=== PATIENT | female | born 1990 | race Caucasian/White ===

== ENCOUNTER 2016-07-19 18:59 | Emergency (ER) | payer SELFPAY ==
--- NOTE | 2016-07-19 19:23 | ED Physician Documentation ---
General Adult - HISTORIAN Historian: patient - HPI Stated Complaint: cp Chief Complaint: General Adult Additional Information: Sharp right sided CP and sternal pressure, hard to breathe, for two days. Can't catch her breath because deep breath makes it hurt worse. Thinks she was wtchign TV when it began. - ROS CONST: no problems CVS/RESP: denies: cough LNMP: 06/18/16 ("end of last month) - PAST HX Past History: none Surgeries/Procedures: none Allergies/Adverse Reactions: Allergies Allergy/AdvReac Type Severity Reaction Status Date / Time bismuth subsalicylate Allergy Verified 08/13/15 09:28 [From Pepto-Bismol] Penicillins AdvReac Nausea/Vomi Verified 07/19/16 19:34 ting Home Medications: Ambulatory Orders Medication Instructions Recorded Nitrofurantoin Monohyd/M-Cryst 100 mg PO Q12H #14 capsule 07/19/16 [Macrobid] - SOCIAL HX Smoking History: non-smoker - FAMILY HX Family History: Yes (DM, "thyrodi") - VITAL SIGNS Vital Signs: Vital Signs Temp Pulse Resp BP Pulse Ox 137/94 08/13/15 09:49 - REVIEWED ASSESSMENTS Nursing Assessment Reviewed: Yes Vitals Reviewed: Yes Progress - Progress Progress: Chest 2 views Date of Exam: July 19, 2016. History: CXR, CHEST PAIN AND PRESSURE TODAY WITH RIGHT SIDED PAIN X2 DAYS (Hx) / CHEST PAIN (DICOM Hx) / CHEST PAIN (Pt comments) Findings: No comparison studies are provided. The cardiac and mediastinal silhouettes are normal. The lungs are clear. There is no evidence of pulmonary infiltrate or pleural effusion. The trachea is midline and the aortic arch contour is normal. The pulmonary vascularity is within normal limits. There is slight elevation of the right hemidiaphragm. Impression: No acute cardiopulmonary abnormality. Electronically signed on Jul 19, 2016 8:22:17 PM CDT by: Fabiola Henderson EKG: sinu rhythm, 61 BPM, no ischemic changes ED Results Lab/Radiology - Orders Orders: ED Orders Category Date Time Status Continuous EKG monitoring Q1H Care 07/19/16 19:21 Ordered Continuous Pulse Oximetry Q1H Care 07/19/16 19:21 Ordered CHEST P.A.&LAT 2 VIEWS [RAD] Stat Exams 07/19/16 Ordered CBC/PLATELET/DIFF Routine Lab 07/19/16 Ordered CMP Routine Lab 07/19/16 Ordered TROPONIN I (cTnI) Stat Lab 07/19/16 Ordered URINALYSIS Routine Lab 07/19/16 Ordered URINE HCG Stat Lab 07/19/16 Uncollected EKG WITH COMPARISON Stat Ther 07/19/16 Ordered General Adult Physical Exam - PHYSICAL EXAM GENERAL APPEARANCE: no distress EENT: eye inspection normal, ENT inspection normal, pharynx normal NECK: normal inspection, supple RESPIRATORY: no resp distress, breath sounds normal, other (palpation right mid sternum reproduces her pain) CVS: reg rate & rhythm, heart sounds normal, no murmur ABDOMEN: soft, normal bowel sounds, non-tender BACK: normal inspection SKIN: warm/dry, normal color EXTREMITIES: no evidence of injury, no edema NEURO: CN's nml as tested, motor nml, sensation nml Discharge Clincal Impression: Chest wall pain Urinary tract infection Qualifiers: Urinary tract infection type: acute cystitis Hematuria presence: with hematuria Qualified Code(s): N30.01 - Acute cystitis with hematuria Prescriptions: Nitrofurantoin Monohyd/M-Cryst [Macrobid] 100 mg PO Q12H #14 capsule Additional Instructions: Drink plenty of water. Take all the antibiotics as prescribed until they are completely gone. For the chest wall pain, press on the sore area if you know you are about to cough or sneeze. You can apply gentle heat several times a day. Home Medications: Ambulatory Orders Nitrofurantoin Monohyd/M-Cryst [Macrobid] 100 mg PO Q12H #14 capsule 07/19/16 Condition: Good Disposition: 01 HOME, SELF-CARE Decision to Admit: NO Decision Time: 21:05
[2016-07-19 19:45] LABS: BASOPHILS % 0.2 (0.0-1.5); LYMPHOCYTES # 1.7 # k/uL (0.6-4.0); MEAN CORPUSCULAR HEMOGLOBIN 29.6 pg (28.0-34.0); MONOCYTES # 0.3 # k/uL (0.0-0.9); NEUTROPHILS # 3.1 # k/uL (1.4-7.7)
[2016-07-19] MEDS ORDERED: NITROFURANTOIN 100 MG CAPSULE PO ONE (19:57)
[2016-07-19 20:02] LABS: eGFR (African) > 60; eGFR (Non-African) > 60
[2016-07-19 21:35] VITALS: BP 122/75
[2016-07-20 05:48] LABS: APPEARANCE,URINE CLOUDY (CLEAR); COLOR,URINE YELLOW (YELLOW); OCCULT BLOOD,URINE 1+ (NEGATIVE); UROBILINOGEN URINE 0.2 Eu (0.2-1.0)
--- NOTE | 2016-07-20 10:30 | Diagnostic Imaging Report ---
ELIZABETH HILTON - JUDITH [facility] [id number] Counts Include [address] Beds At [facility] [address] [place] [address]. [id number] Report Submission Date: Jul 19, 2016 8:22:17 PM CDT Patient Study Name: ALLEN BLANK Date: Jul 19, 2016 7:50:23 PM CDT Modality Type: CR Gender: F Description: CHEST : 86 Institution: [facility] Physician: ELIZABETH HILTON - JUDITH Chest 2 views Date of Exam: July 19, 2016. History: CXR, CHEST PAIN AND PRESSURE TODAY WITH RIGHT SIDED PAIN X2 DAYS (Hx) / CHEST PAIN (DICOM Hx) / CHEST PAIN (Pt comments) Findings: No comparison studies are provided. The cardiac and mediastinal silhouettes are normal. The lungs are clear. There is no evidence of pulmonary infiltrate or pleural effusion. The trachea is midline and the aortic arch contour is normal. The pulmonary vascularity is within normal limits. There is slight elevation of the right hemidiaphragm. Impression: No acute cardiopulmonary abnormality. Electronically signed on Jul 19, 2016 8:22:17 PM CDT by: Fabiola SHEPPARD
== END 2016-07-19 21:10 | disposition home or self-care (01) ==
LOC: ED 18:59
DX: R07.89 Other chest pain (principal); N30.01 Acute cystitis with hematuria
CPT/HCPCS: 71020; 80053; 81002; 81025; 84484; 85025; 87086; 87186; 99283

== ENCOUNTER 2017-01-09 12:35 | Emergency (ER) | payer SELFPAY ==
[2017-01-09 13:07] VITALS: BP 133/84
--- NOTE | 2017-01-09 13:53 | ED Physician Documentation ---
General Adult - HISTORIAN Historian: patient - HPI Stated Complaint: left neck pain Chief Complaint: General Adult Further Comments: yes (26 year old female patient presents with complaints of left lateral jaw and neck pain. Patient concerned she has something wrong with her thyroid. State swelling started yesterday, denies sore throat, denies fever running nose or cough. Reports "crying all the time".) - ROS CONST: no problems EYES/ENT: none CVS/RESP: none GI/: none MS/SKIN/LYMPH: none NEURO/PSYCH: denies: headache - PAST HX Past History: none Other History: none Allergies/Adverse Reactions: Allergies Allergy/AdvReac Type Severity Reaction Status Date / Time bismuth subsalicylate Allergy Verified 01/09/17 13:08 [From Pepto-Bismol] Penicillins AdvReac Nausea/Vomi Verified 01/09/17 13:08 ting Home Medications: Ambulatory Orders Medication Instructions Recorded NK [NK] 01/09/17 - SOCIAL HX Smoking History: non-smoker - FAMILY HX Family History: No - VITAL SIGNS Vital Signs: Vital Signs Temp Pulse Resp BP Pulse Ox 98.7 F 69 20 133/84 97 01/09/17 12:35 01/09/17 13:40 01/09/17 13:40 01/09/17 12:35 01/09/17 13:40 - REVIEWED ASSESSMENTS Nursing Assessment Reviewed: Yes Vitals Reviewed: Yes General Adult Physical Exam - PHYSICAL EXAM GENERAL APPEARANCE: mild distress EENT: eye inspection normal, ENT inspection normal, pharynx normal, no signs of dehydration, SKYLAR, no nystagmus, TM's nml NECK: lymphadenopathy (left submandibular lymph chains) RESPIRATORY: no resp distress, chest non-tender, breath sounds normal CVS: reg rate & rhythm, heart sounds normal, equal pulses, no murmur, no gallop , PMI nml, no JVD, no friction rub, 24 ABDOMEN: soft, no organomegaly, normal bowel sounds, no abdominal bruit, no distension, other (morbid obesity) SKIN: normal color, warm/dry, NR, INT, PAL, DR EXTREMITIES: non-tender, normal range of motion, no evidence of injury, no edema , J, STILL OPERATOR NEURO: oriented X3, CN's nml as tested, motor nml, sensation nml, mood/affect nml Discharge Clincal Impression: Lymph node enlargement Referrals: Primary Doctor,No [Primary Care Provider] - 2 Days Condition: Good Disposition: 01 HOME, SELF-CARE Decision to Admit: NO Decision Time: 13:40
== END 2017-01-09 13:39 | disposition home or self-care (01) ==
LOC: ED 12:35
DX: R59.9 Enlarged lymph nodes, unspecified (principal)
CPT/HCPCS: 99283